=== PATIENT | male | born 1950 | race Caucasian/White ===

== ENCOUNTER 2018-11-12 18:33 | Inpatient (IN) | payer OTHER ==
[~2018-11-12] VITALS: Ht 185.4 cm; Wt 99.8 kg
--- NOTE | 2018-11-12 19:02 | NUR ---
bib roslyn d/t neuro changed since this am . per son report pt's son called at 7 am, pt was normal no answer at 1530 . pt's son went to pt's house about 1730 . [t was lying down on the floor on the rt side and mumbling speaking son called roslyn
[2018-11-12] MEDS ORDERED: METO-93 PO (19:08)
--- NOTE | 2018-11-12 19:13 | NUR ---
pt's rt side is slightly imvproving while on cat scan family at bed side
--- NOTE | 2018-11-12 19:20 | NUR ---
Report received and care assumed. Pt back from CT. Pt moving R side slightly but still presents with sig weakness to R arm and leg. Also states decreased sensation to R side. Pt able to speak but does not answer questions appropriately. Pt alert but confused at this time. Pt is HTN--per Olga RN, ERP aware and no meds to be given at this time. Family at bedside. Awaiting test results.
[2018-11-12 19:23] LABS: INTERNATIONAL NORMALIZED RATIO 0.99 (0.93-1.1); PROTHROMBIN TIME 10.4 Seconds (9.6-11.5)
--- NOTE | 2018-11-12 19:46 | NUR ---
Pt continues to be confused. Moving L side well, continues with R side weakness. Pt urinated self. Linens changed. Family updated to POC.
--- NOTE | 2018-11-12 19:55 | NUR ---
ERP at bedside to discuss test results and POC.
[2018-11-12] MEDS ORDERED: ASPIRIN 300 MG SUPP PR ONE (20:00)
[2018-11-12 20:14] LABS: BASOPHILS % (AUTO) 0 % (0-1); EOSINOPHILS % (AUTO) 0 % (1-7); LYMPHOCYTES # (AUTO) 0.81 x10^3/uL (1-3.4); LYMPHOCYTES % (AUTO) 7 % (22-44); MD NO; MEAN CORPUSCULAR HEMOGLOBIN 29.4 pg (27.5-34.5); MEAN CORPUSCULAR HGB CONC 32.9 g/dL (33.2-36.2); MEAN CORPUSCULAR VOLUME 89.4 fL (81-97); MEAN PLATELET VOLUME 9.5 fL (7.4-10.4); MONOCYTES # (AUTO) 0.53 x10^3/uL (0.2-0.8); MONOCYTES % (AUTO) 5 % (2-9); NEUTROPHILS # (AUTO) 9.82 x10^3/uL (1.8-6.8); NEUTROPHILS % (AUTO) 88 % (42-75); PLATELET COUNT 286 x10^3/uL (130-400); RED BLOOD COUNT 4.62 x10^6/uL (4.38-5.82); RED CELL DISTRIBUTION WIDTH 14.1 % (9.4-14.8)
--- NOTE | 2018-11-12 20:22 | NUR ---
Dr Wayne at bedside to [facility] for admission. ERP aware of BP--no meds to be given at this time.
--- NOTE | 2018-11-12 20:27 | NUR ---
Sriram, pt's son [phone] [place], pt's s/o [phone]
[2018-11-12] MEDS ORDERED: LABETALOL 5MG/ML, 20ML IV PRN (21:00)
[2018-11-12] MEDS ORDERED: ACETAMINOPHEN 650 MG/20.3 ML UDC PO/NG PRN (21:00)
[2018-11-12] MEDS ORDERED: PROMETHAZINE 25 MG/ML, 1ML IM PRN (21:00)
--- NOTE | 2018-11-12 21:10 | NUR ---
ADMIT ORDERS REVIEWED. NO ACUTE CHANGES NOTED IN PT NEURO. REMAINS CONFUSED AND ANSWERING QUESTIONS INAPPROPRIATELY. SILVER WRAPPER STRONG ON L SIDE. SIG R SIDE WEAKNESS TO ARM AND LEG. DECREASED SENSATION TO R LEG. PT HAVING DIFFICULTY FOLLOWING COMMANDS. BP IMPROVING. FAMILY AT BEDSIDE. AWAITING TRANSFER TO FLOOR.
--- NOTE | 2018-11-12 21:28 | NUR ---
PT TO MRI VIA LETTY
--- NOTE | 2018-11-12 21:30 | NUR ---
PER , PT'S INSURANCE IS [employer]. DISCUSSED WITH ERP AND PT IS TOO UNSTABLE FOR TRANSFER S/T STROKE. PT WILL BE ADMITTED HERE UNTIL PT IS MORE STABLE.
[2018-11-12] MEDS ORDERED: LORazepam 2 MG/ML, 1ML ONE (21:48)
--- NOTE | 2018-11-12 22:15 | NUR ---
PT NOT TOLERATING MRI--CALLED AND DISCUSSED WITH DR ROLAND. ORDER FOR 1MG ATIVAN IV. PT MEDICATED PER ORDER. PT STILL NOT SITTING STILL. [employer]EL[employer] STATES STUDY CAN NOT BE COMPLETED AND WILL HAVE TO WAIT UNTIL TOMORROW. PT BACK TO ER.
[2018-11-12 22:30] LABS: HCT (SEDRATE) 41.3 % (39.2-51.8)
[2018-11-12] MEDS ORDERED: LORazepam 2 MG/ML, 1ML IVPush ONE (22:30)
[2018-11-12 22:40] VITALS: BP 197/109
[2018-11-12] MEDS: SODIUM CHLORIDE 0.9% 1,000 ML IV SCH (22:41)
[2018-11-12] MEDS: HEPARIN 5,000 UNITS/ML, 1ML SQ SCH (22:48)
[2018-11-12] MEDS: ATORVASTATIN 80 MG TABLET PO SCH (22:48)
[2018-11-12] MEDS: NICOTINE 14MG/24 HR PATCH.TD24 TD SCH (22:48)
[2018-11-13] VITALS (10 sets, daily range): BP systolic 149–209; BP diastolic 84–118
[2018-11-13] MEDS ORDERED: LORazepam 2 MG/ML, 1ML IVPush ONE ×2 (01:00→08:00)
[2018-11-13] MEDS: INSULIN LISPRO 100 UNITS/ML, PEN SQ-INSULIN SCH ×4 (02:46→20:57)
[2018-11-13 04:24] LABS: LDL/HDL RATIO 4.1 (0.5-3.0)
[2018-11-13] MEDS ORDERED: GLUCAGON 1 MG IM PRN (04:30)
[2018-11-13] MEDS ORDERED: DEXTROSE 50%, 50ML SYRINGE IVPush PRN (04:30)
[2018-11-13] MEDS ORDERED: DEXTROSE 4 GM TAB.CHEW PO PRN (04:30)
[2018-11-13] MEDS: HEPARIN 5,000 UNITS/ML, 1ML SQ SCH ×2 (05:54→13:35)
[2018-11-13] MEDS: ASPIRIN 81 MG TABLET CHEW PO/NG SCH (08:16)
[2018-11-13] MEDS ORDERED: hydrALAzine 20 MG/ML, 1ML IV PRN (09:00)
[2018-11-13] MEDS: INSULIN GLARGINE 100 UNITS/ML, PEN SQ-INSULIN SCH (09:23)
[2018-11-13] MEDS: SODIUM CHLORIDE FLUSH 10ML SYR IVF SCH ×2 (09:24→20:57)
[2018-11-13] MEDS ORDERED: OLANZAPINE 10 MG INJ IM STA (09:42)
[2018-11-13 11:11] LABS: AMPHETAMINE SCREEN, URINE Negative (Negative); BARBITURATE SCREEN, URINE Negative (Negative); BENZODIAZEPINE SCREEN, URINE Negative (Negative); CANNABINOID SCREEN, URINE Negative (Negative); COCAINE SCREEN, URINE Negative (Negative); METHADONE SCREEN, URINE Negative (Negative); OPIATE SCREEN, URINE Negative (Negative)
[2018-11-13 11:25] LABS: MICROSCOPIC INDICATED
[2018-11-13] MEDS: SODIUM CHLORIDE 0.9% 1,000 ML IV SCH (11:28)
[2018-11-13] MEDS: METOPROLOL 1 MG/ML, 5ML IVPush PRN (13:35)
[2018-11-13] MEDS: METOPROLOL TARTRATE 25 MG TABLET PO SCH (16:17)
[2018-11-13] MEDS ORDERED: METOPROLOL TARTRATE 25 MG TABLET PO SCH (18:00)
[2018-11-13] MEDS: ATORVASTATIN 80 MG TABLET PO SCH (20:29)
[2018-11-13] MEDS: NICOTINE 14MG/24 HR PATCH.TD24 TD SCH ×2 (22:24→22:28)
[2018-11-14] VITALS (12 sets, daily range): BP systolic 138–197; BP diastolic 70–114
[2018-11-14] MEDS: SODIUM CHLORIDE 0.9% 1,000 ML IV SCH ×2 (02:57→18:09)
[2018-11-14] MEDS: INSULIN LISPRO 100 UNITS/ML, PEN SQ-INSULIN SCH ×4 (03:13→20:33)
[2018-11-14] MEDS: METOPROLOL 1 MG/ML, 5ML IVPush PRN ×3 (04:20→22:56)
[2018-11-14 05:17] LABS: BASOPHILS # (AUTO) 0.05 x10^3/uL (0-0.1); BASOPHILS % (AUTO) 0 % (0-1); EOSINOPHILS % (AUTO) 0 % (1-7); LYMPHOCYTES # (AUTO) 0.84 x10^3/uL (1-3.4); LYMPHOCYTES % (AUTO) 7 % (22-44); MD NO; MEAN CORPUSCULAR HEMOGLOBIN 29.4 pg (27.5-34.5); MEAN CORPUSCULAR HGB CONC 33.3 g/dL (33.2-36.2); MEAN CORPUSCULAR VOLUME 88.3 fL (81-97); MEAN PLATELET VOLUME 9.1 fL (7.4-10.4); MONOCYTES # (AUTO) 0.96 x10^3/uL (0.2-0.8); MONOCYTES % (AUTO) 8 % (2-9); NEUTROPHILS # (AUTO) 10.64 x10^3/uL (1.8-6.8); NEUTROPHILS % (AUTO) 85 % (42-75); PLATELET COUNT 274 x10^3/uL (130-400); RED BLOOD COUNT 4.93 x10^6/uL (4.38-5.82); RED CELL DISTRIBUTION WIDTH 14.6 % (9.4-14.8)
[2018-11-14] MEDS: METOPROLOL TARTRATE 25 MG TABLET PO SCH ×2 (05:17→17:22)
[2018-11-14 05:30] LABS: ANION GAP 9 mmol/L (5-15); CALCIUM 8.6 mg/dL (8.5-10.1); CHLORIDE 108 mmol/L (98-107)
[2018-11-14 05:34] LABS: CREATINE KINASE, TOTAL 714 U/L (39-308); CREATININE 1.57 mg/dL (0.7-1.3)
[2018-11-14] MEDS ORDERED: POTASSIUM CHLORIDE 40 MEQ in SODIUM CHLORIDE 0.9% 500 ML IV ONE ×2 (08:30→11:30)
[2018-11-14] MEDS: ASPIRIN 81 MG TABLET CHEW PO/NG SCH (08:44)
[2018-11-14] MEDS: SODIUM CHLORIDE FLUSH 10ML SYR IVF SCH ×2 (09:00→20:30)
[2018-11-14] MEDS: INSULIN GLARGINE 100 UNITS/ML, PEN SQ-INSULIN SCH (09:05)
--- NOTE | 2018-11-14 12:19 | NUR ---
REC NPO; ORANGE SHEET WITH DIET RECOMMENDATION POSTED AT BEDSIDE. Addendum: 11/14/18 at 1219 by Rachel FELIZ Amended: Links added.
[2018-11-14] MEDS ORDERED: hydrALAzine 20 MG/ML, 1ML IV PRN (17:00)
[2018-11-14] MEDS: ATORVASTATIN 80 MG TABLET PO SCH (20:26)
[2018-11-14] MEDS ORDERED: hydrALAzine 20 MG/ML, 1ML IV ONE (20:30)
[2018-11-14] MEDS: NICOTINE 14MG/24 HR PATCH.TD24 TD SCH (22:19)
[2018-11-15] VITALS (12 sets, daily range): BP systolic 157–196; BP diastolic 72–101
[2018-11-15] MEDS: hydrALAzine 20 MG/ML, 1ML IV PRN ×4 (01:01→23:25)
[2018-11-15] MEDS: SODIUM CHLORIDE 0.9% 1,000 ML IV SCH ×2 (02:11→15:01)
[2018-11-15] MEDS: INSULIN LISPRO 100 UNITS/ML, PEN SQ-INSULIN SCH ×4 (03:51→22:12)
[2018-11-15] MEDS: METOPROLOL TARTRATE 25 MG TABLET PO SCH (05:26)
[2018-11-15 05:39] LABS: BASOPHILS % (AUTO) 0 % (0-1); EOSINOPHILS # (AUTO) 0.11 x10^3/uL (0-0.4); EOSINOPHILS % (AUTO) 1 % (1-7); LYMPHOCYTES # (AUTO) 0.75 x10^3/uL (1-3.4); LYMPHOCYTES % (AUTO) 6 % (22-44); MD NO; MEAN CORPUSCULAR HEMOGLOBIN 29.6 pg (27.5-34.5); MEAN CORPUSCULAR VOLUME 89.6 fL (81-97); MEAN PLATELET VOLUME 9.7 fL (7.4-10.4); MONOCYTES # (AUTO) 0.61 x10^3/uL (0.2-0.8); MONOCYTES % (AUTO) 5 % (2-9); NEUTROPHILS % (AUTO) 89 % (42-75); PLATELET COUNT 256 x10^3/uL (130-400); RED BLOOD COUNT 4.68 x10^6/uL (4.38-5.82); RED CELL DISTRIBUTION WIDTH 14.6 % (9.4-14.8)
[2018-11-15 05:50] LABS: CHLORIDE 112 mmol/L (98-107)
[2018-11-15 06:00] LABS: ANION GAP 13 mmol/L (5-15); CALCIUM 8.5 mg/dL (8.5-10.1); CREATINE KINASE, TOTAL 550 U/L (39-308); CREATININE 1.32 mg/dL (0.7-1.3)
[2018-11-15] MEDS: METOPROLOL 1 MG/ML, 5ML IVPush PRN ×3 (08:13→21:47)
[2018-11-15] MEDS: SODIUM CHLORIDE FLUSH 10ML SYR IVF SCH ×2 (08:14→21:46)
[2018-11-15] MEDS: INSULIN GLARGINE 100 UNITS/ML, PEN SQ-INSULIN SCH (08:14)
[2018-11-15] MEDS ORDERED: METOPROLOL TARTRATE 25 MG TABLET NG ONE (10:30)
[2018-11-15] MEDS: SODIUM CHLORIDE 0.45% 1,000 ML IV SCH ×2 (12:00→21:55)
[2018-11-15] MEDS ORDERED: BENZOCAINE 20% SPRAY 0.5ML ONE (15:31)
[2018-11-15] MEDS ORDERED: LABETALOL 5MG/ML, 20ML IVPush ONE (16:00)
[2018-11-15] MEDS: AMLODIPINE 5 MG TABLET NG SCH (17:24)
[2018-11-15] MEDS ORDERED: METOPROLOL TARTRATE 50 MG TABLET PO SCH (18:00)
[2018-11-15] MEDS: ATORVASTATIN 80 MG TABLET PO SCH (21:00)
[2018-11-15] MEDS: NICOTINE 14MG/24 HR PATCH.TD24 TD SCH (22:11)
[2018-11-16] VITALS (11 sets, daily range): BP systolic 143–181; BP diastolic 75–93
[2018-11-16] MEDS: ATORVASTATIN 80 MG TABLET NG SCH ×2 (01:14→20:13)
[2018-11-16] MEDS: INSULIN LISPRO 100 UNITS/ML, PEN SQ-INSULIN SCH ×4 (03:42→23:01)
[2018-11-16 03:46] LABS: BASOPHILS # (AUTO) 0.03 x10^3/uL (0-0.1); BASOPHILS % (AUTO) 0 % (0-1); EOSINOPHILS % (AUTO) 0 % (1-7); LYMPHOCYTES # (AUTO) 1.08 x10^3/uL (1-3.4); LYMPHOCYTES % (AUTO) 9 % (22-44); MD NO; MEAN CORPUSCULAR HEMOGLOBIN 28.5 pg (27.5-34.5); MEAN CORPUSCULAR HGB CONC 32.2 g/dL (33.2-36.2); MEAN CORPUSCULAR VOLUME 88.5 fL (81-97); MEAN PLATELET VOLUME 8.8 fL (7.4-10.4); MONOCYTES # (AUTO) 0.82 x10^3/uL (0.2-0.8); MONOCYTES % (AUTO) 7 % (2-9); NEUTROPHILS # (AUTO) 9.82 x10^3/uL (1.8-6.8); NEUTROPHILS % (AUTO) 84 % (42-75); PLATELET COUNT 259 x10^3/uL (130-400); RED BLOOD COUNT 4.37 x10^6/uL (4.38-5.82); RED CELL DISTRIBUTION WIDTH 14.9 % (9.4-14.8)
[2018-11-16 03:52] LABS: ALBUMIN 2.8 g/dL (3.4-5.0); ANION GAP 9 mmol/L (5-15); CALCIUM 8.5 mg/dL (8.5-10.1); CHLORIDE 115 mmol/L (98-107)
[2018-11-16 03:57] LABS: ALANINE AMINOTRANSFERASE 30 U/L (12-78); ALKALINE PHOSPHATASE 102 U/L (45-117); BILIRUBIN,TOTAL 0.6 mg/dL (0.2-1.0); CREATINE KINASE, TOTAL 541 U/L (39-308); CREATININE 1.24 mg/dL (0.7-1.3); TOTAL PROTEIN 6.1 g/dL (6.4-8.2)
[2018-11-16] MEDS: METOPROLOL TARTRATE 50 MG TABLET NG SCH ×2 (05:34→17:01)
[2018-11-16] MEDS: SODIUM CHLORIDE 0.45% 1,000 ML IV SCH (06:41)
[2018-11-16] MEDS: hydrALAzine 20 MG/ML, 1ML IV PRN ×2 (08:14→23:02)
[2018-11-16] MEDS: INSULIN GLARGINE 100 UNITS/ML, PEN SQ-INSULIN SCH (08:15)
[2018-11-16] MEDS: AMLODIPINE 5 MG TABLET NG SCH (08:15)
[2018-11-16] MEDS: SODIUM CHLORIDE FLUSH 10ML SYR IVF SCH ×2 (08:15→20:13)
[2018-11-16] MEDS: METOPROLOL 1 MG/ML, 5ML IVPush PRN (15:41)
[2018-11-16] MEDS: NICOTINE 14MG/24 HR PATCH.TD24 TD SCH (23:01)
[2018-11-17] VITALS (13 sets, daily range): BP systolic 129–184; BP diastolic 70–102
[2018-11-17] MEDS: METOPROLOL 1 MG/ML, 5ML IVPush PRN ×2 (02:22→22:26)
[2018-11-17] MEDS: hydrALAzine 20 MG/ML, 1ML IV PRN ×3 (04:25→21:11)
[2018-11-17] MEDS: INSULIN LISPRO 100 UNITS/ML, PEN SQ-INSULIN SCH ×4 (04:26→21:07)
[2018-11-17] MEDS: METOPROLOL TARTRATE 50 MG TABLET NG SCH (05:17)
[2018-11-17 07:20] LABS: BASOPHILS # (AUTO) 0.06 x10^3/uL (0-0.1); BASOPHILS % (AUTO) 1 % (0-1); EOSINOPHILS % (AUTO) 0 % (1-7); LYMPHOCYTES # (AUTO) 0.82 x10^3/uL (1-3.4); LYMPHOCYTES % (AUTO) 7 % (22-44); MD NO; MEAN CORPUSCULAR HEMOGLOBIN 28.5 pg (27.5-34.5); MEAN CORPUSCULAR HGB CONC 32.2 g/dL (33.2-36.2); MEAN CORPUSCULAR VOLUME 88.5 fL (81-97); MEAN PLATELET VOLUME 8.7 fL (7.4-10.4); MONOCYTES # (AUTO) 1.01 x10^3/uL (0.2-0.8); MONOCYTES % (AUTO) 8 % (2-9); NEUTROPHILS # (AUTO) 10.47 x10^3/uL (1.8-6.8); NEUTROPHILS % (AUTO) 85 % (42-75); PLATELET COUNT 310 x10^3/uL (130-400); RED BLOOD COUNT 4.54 x10^6/uL (4.38-5.82); RED CELL DISTRIBUTION WIDTH 15.2 % (9.4-14.8)
[2018-11-17 07:33] LABS: ALBUMIN 2.7 g/dL (3.4-5.0); ANION GAP 8 mmol/L (5-15); CHLORIDE 114 mmol/L (98-107)
[2018-11-17 07:38] LABS: ALANINE AMINOTRANSFERASE 36 U/L (12-78); ALKALINE PHOSPHATASE 108 U/L (45-117); BILIRUBIN,TOTAL 0.7 mg/dL (0.2-1.0); CREATININE 1.31 mg/dL (0.7-1.3); TOTAL PROTEIN 6.6 g/dL (6.4-8.2)
[2018-11-17] MEDS: AMLODIPINE 5 MG TABLET NG SCH (08:01)
[2018-11-17] MEDS: INSULIN GLARGINE 100 UNITS/ML, PEN SQ-INSULIN SCH ×3 (08:01→21:07)
[2018-11-17] MEDS: SODIUM CHLORIDE FLUSH 10ML SYR IVF SCH ×2 (08:02→21:08)
[2018-11-17] MEDS ORDERED: METOPROLOL TARTRATE 25 MG TABLET PO ONE (08:30)
[2018-11-17] MEDS ORDERED: BISACODYL 10 MG SUPP PR PRN (08:30)
[2018-11-17] MEDS ORDERED: DOCUSATE 50 MG/5 ML, 10ML UDC ONE (08:40)
[2018-11-17] MEDS: POLYETHYLENE GLYCOL 17 GM PACKET NG SCH (08:48)
[2018-11-17] MEDS ORDERED: DOCUSATE 100 MG CAPSULE PO SCH (09:00)
[2018-11-17] MEDS: METRONIDAZOLE PMX 500MG/100ML 100 ML IV SCH ×3 (11:53→22:26)
[2018-11-17] MEDS: CEFTRIAXONE PMX 1GM/50ML 50 ML IV SCH (11:53)
[2018-11-17] MEDS: METOPROLOL TARTRATE 25 MG TABLET NG SCH (17:22)
[2018-11-17] MEDS: DOCUSATE 50 MG/5 ML, 10ML UDC PO SCH (21:08)
[2018-11-17] MEDS: ATORVASTATIN 80 MG TABLET NG SCH (21:08)
[2018-11-17] MEDS: NICOTINE 14MG/24 HR PATCH.TD24 TD SCH (22:19)
[2018-11-18] VITALS (23 sets, daily range): BP systolic 117–188; BP diastolic 72–96
[2018-11-18] MEDS: hydrALAzine 20 MG/ML, 1ML IV PRN ×3 (00:47→19:41)
[2018-11-18] MEDS: METOPROLOL 1 MG/ML, 5ML IVPush PRN ×4 (02:47→22:26)
[2018-11-18] MEDS: INSULIN LISPRO 100 UNITS/ML, PEN SQ-INSULIN SCH ×4 (02:48→20:33)
[2018-11-18] MEDS: METRONIDAZOLE PMX 500MG/100ML 100 ML IV SCH ×4 (04:30→22:26)
[2018-11-18 04:43] LABS: BASOPHILS # (AUTO) 0.03 x10^3/uL (0-0.1); BASOPHILS % (AUTO) 0 % (0-1); EOSINOPHILS # (AUTO) 0.02 x10^3/uL (0-0.4); EOSINOPHILS % (AUTO) 0 % (1-7); LYMPHOCYTES # (AUTO) 0.93 x10^3/uL (1-3.4); LYMPHOCYTES % (AUTO) 9 % (22-44); MD NO; MEAN CORPUSCULAR HEMOGLOBIN 28.9 pg (27.5-34.5); MEAN CORPUSCULAR HGB CONC 32.3 g/dL (33.2-36.2); MEAN CORPUSCULAR VOLUME 89.3 fL (81-97); MEAN PLATELET VOLUME 9.3 fL (7.4-10.4); MONOCYTES # (AUTO) 0.78 x10^3/uL (0.2-0.8); MONOCYTES % (AUTO) 8 % (2-9); NEUTROPHILS # (AUTO) 8.69 x10^3/uL (1.8-6.8); NEUTROPHILS % (AUTO) 83 % (42-75); PLATELET COUNT 275 x10^3/uL (130-400); RED CELL DISTRIBUTION WIDTH 14.7 % (9.4-14.8)
[2018-11-18 04:55] LABS: ANION GAP 6 mmol/L (5-15); CALCIUM 8.9 mg/dL (8.5-10.1); CHLORIDE 114 mmol/L (98-107); CREATININE 1.36 mg/dL (0.7-1.3)
[2018-11-18] MEDS: METOPROLOL TARTRATE 25 MG TABLET NG SCH ×2 (05:13→17:03)
[2018-11-18] MEDS: DOCUSATE 50 MG/5 ML, 10ML UDC PO SCH ×2 (09:29→20:34)
[2018-11-18] MEDS: POLYETHYLENE GLYCOL 17 GM PACKET NG SCH (09:29)
[2018-11-18] MEDS: AMLODIPINE 5 MG TABLET NG SCH (09:30)
[2018-11-18] MEDS: SODIUM CHLORIDE FLUSH 10ML SYR IVF SCH ×2 (09:30→20:32)
[2018-11-18] MEDS: INSULIN GLARGINE 100 UNITS/ML, PEN SQ-INSULIN SCH ×2 (09:30→20:34)
[2018-11-18] MEDS: CEFTRIAXONE PMX 1GM/50ML 50 ML IV SCH (11:55)
[2018-11-18] MEDS: ATORVASTATIN 80 MG TABLET NG SCH (20:34)
[2018-11-18] MEDS: NICOTINE 14MG/24 HR PATCH.TD24 TD SCH (22:06)
[2018-11-18 23:33] LABS: CLOSTRIDIUM DIFFICILE TOXIN NEGATIVE (Negative)
[2018-11-18 23:35] LABS: CLOSTRIDIUM DIFFICILE ANTIGEN POSITIVE
[2018-11-19] VITALS (11 sets, daily range): BP systolic 123–212; BP diastolic 70–104
[2018-11-19] MEDS: hydrALAzine 20 MG/ML, 1ML IV PRN ×2 (00:12→21:32)
[2018-11-19] MEDS: INSULIN LISPRO 100 UNITS/ML, PEN SQ-INSULIN SCH ×4 (03:05→21:32)
[2018-11-19] MEDS: METRONIDAZOLE PMX 500MG/100ML 100 ML IV SCH ×4 (04:35→23:29)
[2018-11-19] MEDS: METOPROLOL TARTRATE 25 MG TABLET NG SCH ×2 (05:05→17:38)
[2018-11-19 05:16] LABS: BASOPHILS # (AUTO) 0.02 x10^3/uL (0-0.1); BASOPHILS % (AUTO) 0 % (0-1); EOSINOPHILS # (AUTO) 0.04 x10^3/uL (0-0.4); EOSINOPHILS % (AUTO) 0 % (1-7); LYMPHOCYTES # (AUTO) 1.17 x10^3/uL (1-3.4); LYMPHOCYTES % (AUTO) 10 % (22-44); MD NO; MEAN CORPUSCULAR HEMOGLOBIN 28.5 pg (27.5-34.5); MEAN CORPUSCULAR HGB CONC 32.1 g/dL (33.2-36.2); MEAN CORPUSCULAR VOLUME 88.6 fL (81-97); MEAN PLATELET VOLUME 9.2 fL (7.4-10.4); MONOCYTES # (AUTO) 0.77 x10^3/uL (0.2-0.8); MONOCYTES % (AUTO) 6 % (2-9); NEUTROPHILS # (AUTO) 10.38 x10^3/uL (1.8-6.8); NEUTROPHILS % (AUTO) 84 % (42-75); PLATELET COUNT 290 x10^3/uL (130-400); RED BLOOD COUNT 4.42 x10^6/uL (4.38-5.82); RED CELL DISTRIBUTION WIDTH 14.7 % (9.4-14.8)
[2018-11-19 05:27] LABS: CHLORIDE 115 mmol/L (98-107)
[2018-11-19 05:34] LABS: ALANINE AMINOTRANSFERASE 31 U/L (12-78); ALBUMIN 2.6 g/dL (3.4-5.0); ALKALINE PHOSPHATASE 106 U/L (45-117); ANION GAP 5 mmol/L (5-15); BILIRUBIN,TOTAL 0.3 mg/dL (0.2-1.0); CREATININE 1.42 mg/dL (0.7-1.3); TOTAL PROTEIN 6.2 g/dL (6.4-8.2)
[2018-11-19] MEDS ORDERED: DEXTROSE 5% 500 ML IV SCH (07:30)
[2018-11-19] MEDS: SODIUM CHLORIDE FLUSH 10ML SYR IVF SCH ×2 (09:00→21:33)
[2018-11-19] MEDS: POLYETHYLENE GLYCOL 17 GM PACKET NG SCH (09:00)
[2018-11-19] MEDS ORDERED: BISACODYL 5 MG EC TABLET PO SCH (09:00)
[2018-11-19] MEDS: DOCUSATE 50 MG/5 ML, 10ML UDC PO SCH (09:00)
[2018-11-19] MEDS: AMLODIPINE 5 MG TABLET NG SCH (10:33)
[2018-11-19] MEDS: INSULIN GLARGINE 100 UNITS/ML, PEN SQ-INSULIN SCH ×2 (10:34→21:31)
[2018-11-19] MEDS: METOPROLOL 1 MG/ML, 5ML IVPush PRN (11:48)
[2018-11-19] MEDS: CEFTRIAXONE PMX 1GM/50ML 50 ML IV SCH (11:48)
[2018-11-19] MEDS ORDERED: LABETALOL 5MG/ML, 20ML IVPush PRN (12:30)
[2018-11-19] MEDS: LISINOPRIL 20 MG TABLET PO SCH (12:52)
[2018-11-19] MEDS ORDERED: POLYETHYLENE GLYCOL 17 GM PACKET NG PRN (15:00)
[2018-11-19] MEDS ORDERED: DOCUSATE 50 MG/5 ML, 10ML UDC PO PRN (15:00)
[2018-11-19 15:21] LABS: ANION GAP 5 mmol/L (5-15); CALCIUM 8.7 mg/dL (8.5-10.1); CHLORIDE 114 mmol/L (98-107); CREATININE 1.33 mg/dL (0.7-1.3)
[2018-11-19] MEDS ORDERED: LABETALOL 5 MG/ML SYRINGE IVPush PRN (21:30)
[2018-11-19] MEDS: ATORVASTATIN 80 MG TABLET NG SCH (21:32)
[2018-11-19] MEDS: NICOTINE 14MG/24 HR PATCH.TD24 TD SCH (21:33)
[2018-11-20] VITALS (8 sets, daily range): BP systolic 123–166; BP diastolic 70–95
[2018-11-20] MEDS: INSULIN LISPRO 100 UNITS/ML, PEN SQ-INSULIN SCH ×4 (03:34→22:08)
[2018-11-20] MEDS: METRONIDAZOLE PMX 500MG/100ML 100 ML IV SCH ×4 (05:41→22:08)
[2018-11-20] MEDS: METOPROLOL TARTRATE 25 MG TABLET NG SCH ×2 (05:41→18:36)
[2018-11-20] MEDS: INSULIN GLARGINE 100 UNITS/ML, PEN SQ-INSULIN SCH ×2 (09:37→22:08)
[2018-11-20] MEDS: LISINOPRIL 20 MG TABLET PO SCH (09:39)
[2018-11-20] MEDS: AMLODIPINE 5 MG TABLET NG SCH (09:39)
[2018-11-20] MEDS: SODIUM CHLORIDE FLUSH 10ML SYR IVF SCH ×2 (09:40→21:55)
[2018-11-20] MEDS: CEFTRIAXONE PMX 1GM/50ML 50 ML IV SCH (12:11)
[2018-11-20] MEDS ORDERED: DEXTROSE 5% 500 ML IV SCH (15:30)
[2018-11-20] MEDS: NICOTINE 14MG/24 HR PATCH.TD24 TD SCH (21:54)
[2018-11-20] MEDS: ATORVASTATIN 80 MG TABLET NG SCH (21:54)
[2018-11-21] VITALS: BP 136/79
[2018-11-21 03:51] VITALS: BP 132/79
[2018-11-21] MEDS: INSULIN LISPRO 100 UNITS/ML, PEN SQ-INSULIN SCH ×2 (03:59→09:00)
[2018-11-21 05:40] VITALS: BP 144/80
[2018-11-21] MEDS: METRONIDAZOLE PMX 500MG/100ML 100 ML IV SCH ×2 (05:42→11:12)
[2018-11-21] MEDS: METOPROLOL TARTRATE 25 MG TABLET NG SCH (05:42)
[2018-11-21 06:30] VITALS: BP 147/85
[2018-11-21] MEDS ORDERED: INSU100I13 SQ-INSULIN (08:47)
[2018-11-21] MEDS ORDERED: LISI-170 PO (08:47)
[2018-11-21] MEDS ORDERED: METO25TA35 NG (08:47)
[2018-11-21] MEDS ORDERED: AMLO-150 NG (08:47)
[2018-11-21] MEDS: AMLODIPINE 5 MG TABLET NG SCH (09:00)
[2018-11-21] MEDS: LISINOPRIL 20 MG TABLET PO SCH (09:00)
[2018-11-21] MEDS: SODIUM CHLORIDE FLUSH 10ML SYR IVF SCH (09:00)
[2018-11-21] MEDS: INSULIN GLARGINE 100 UNITS/ML, PEN SQ-INSULIN SCH (10:14)
[2018-11-21 12:03] VITALS: BP 157/84
[2018-11-21] MEDS: CEFTRIAXONE PMX 1GM/50ML 50 ML IV SCH (12:22)
[2018-11-22] MEDS ORDERED: OMNIPAQUE 350 MG/ML, 100ML BOTTLE ONE (19:00)
== END 2018-11-21 14:00 | disposition hospice, home (50) | DRG 64 ==
LOC: ED 21:15 → 4WST 21:57 → 4EST 11-18 07:28
PROVIDERS: ADMIT Internal Medicine; ATTEND Internal Medicine
PROC: B3131ZZ Fluoroscopy of Right Common Carotid Artery using Low Osmolar Contrast (ICD-10-PCS; principal; 2018-11-12)
PROC: B31D1ZZ Fluoroscopy of Right Vertebral Artery using Low Osmolar Contrast (ICD-10-PCS; 2018-11-12)
PROC: B3181ZZ Fluoroscopy of Bilateral Internal Carotid Arteries using Low Osmolar Contrast (ICD-10-PCS; 2018-11-12)
DX: I63.533 Cerebral infarction due to unspecified occlusion or stenosis of bilateral posterior cerebral arteries (principal); G93.41 Metabolic encephalopathy; I61.5 Nontraumatic intracerebral hemorrhage, intraventricular; J69.0 Pneumonitis due to inhalation of food and vomit; N17.0 Acute kidney failure with tubular necrosis; E87.0 Hyperosmolality and hypernatremia; E87.1 Hypo-osmolality and hyponatremia; M62.82 Rhabdomyolysis; G81.91 Hemiplegia, unspecified affecting right dominant side; R47.01 Aphasia; E78.5 Hyperlipidemia, unspecified; E87.6 Hypokalemia; F17.210 Nicotine dependence, cigarettes, uncomplicated; H35.60 Retinal hemorrhage, unspecified eye; I12.9 Hypertensive chronic kidney disease with stage 1 through stage 4 chronic kidney disease, or unspecified chronic kidney disease; R47.81 Slurred speech; I65.01 Occlusion and stenosis of right vertebral artery; I65.23 Occlusion and stenosis of bilateral carotid arteries; E11.22 Type 2 diabetes mellitus with diabetic chronic kidney disease; N18.9 Chronic kidney disease, unspecified; R13.10 Dysphagia, unspecified; Z51.5 Encounter for palliative care; Z66 Do not resuscitate
CPT/HCPCS: 36415; 70450; 70496; 70498; 71045; 74018; 74340; 80047; 80048; 80053; 80061; 80307; 81001; 82550; 82962; 83036; 84145; 85025; 85610; 85651; 85730; 86140; 87324; 93005; 93306; 96374; G0378; J0696; J1644; J3480; Q9967; 92523-GN; J0360; J1815; J2060; J7030; J7040; J7060